=== PATIENT | female | born 1980 | race Caucasian/White ===

== ENCOUNTER → 2018-09-01 11:00 | Outpatient (CLI) | payer OTHER, SELFPAY ==
[2018-09-01 11:38] LABS: Add Manual Diff / Slide Review NO; Basophils Absolute Auto 0 /uL (0-100); Basophils Percent Auto 0.3 % (0-2); Eosinophils Absolute Auto 100 /uL (0-450); Eosinophils Percent Auto 1.2 % (2-4); Hematocrit 42.7 % (36-46); Hemoglobin 14.3 g/dL (12.0-16.0); Lymphocytes Absolute Auto 1900 /uL (1100-4500); Lymphocytes Percent Auto 26.3 % (25-40); Mean Corpuscular HGB Conc 33.6 % (30-36); Mean Corpuscular Hemoglobin 28.9 PG (26-34); Monocytes Absolute Auto 500 /uL (0-900); Monocytes Percent Auto 7.5 % (3-14); Neutrophils Absolute Auto 4700 /uL (1500-7000); Neutrophils Percent Auto 64.7 % (50-75); Platelet Count 422 X10^3/uL (150-400); Red Blood Cell Count 4.96 X10^6/uL (4.0-5.2); Red Cell Distribution Width 13.7 % (11.6-14.8); White Blood Cell Count 7.2 X10^3/uL (4.5-11.0)
[2018-09-01 11:54] LABS: Hemoglobin A1C% w Est Avg Glu 5.4 % (4.0-6.0)
[2018-09-01 12:03] LABS: Alanine Aminotransferase 48 IU/L (9-52); Albumin 4.6 g/dL (3.5-5.0); Albumin Globulin Ratio 1.2 (1.0-2.8); Alkaline Phosphatase 83 U/L (38-126); Aspartate Aminotransferase 34 IU/L (14-36); BUN Creatinine Ratio 18.6 (6-22); Bilirubin Total 0.6 mg/dL (0.2-1.3); Blood Urea Nitrogen 13 mg/dL (7-17); Calcium 9.9 mg/dL (8.4-10.2); Carbon Dioxide 28 mmol/L (22-32); Chloride 100 mmol/L (98-107); Cholesterol 244 mg/dL (140-199); Estimated Glomerular Filt Rate > 60.0 mL/min (>60); Globulin 3.8 g/dL (1.7-4.1); Glucose 92 mg/dL (70-100); HDL Cholesterol 47 mg/dL (40-60); HEMOLYSIS < 15 (0-50); LDL Cholesterol Calculated 174 mg/dL (<100); Potassium 4.3 mmol/L (3.4-5.1); Sodium 138 mmol/L (137-145); Total Protein 8.4 g/dL (6.3-8.2); Triglycerides 113 mg/dL (35-150)
[2018-09-01 12:19] LABS: Vitamin D 25 Hydroxy (D3) 20.2 ng/mL (30.0-100.0)
[2018-09-01 12:22] LABS: Free T3, Triiodothyronine Free 3.18 pg/mL (2.77-5.27)
[2018-09-01 12:36] LABS: Thyroid Stimulating Hormone 2.03 uIU/mL (0.47-4.68)
== END ==
PROVIDERS: PCP Student in an Organized Health Care Education/Training Program; Visit Provider Student in an Organized Health Care Education/Training Program
DX: E03.9 Hypothyroidism, unspecified (principal); E28.2 Polycystic ovarian syndrome; E55.9 Vitamin D deficiency, unspecified; E66.01 Morbid (severe) obesity due to excess calories
CPT/HCPCS: 36415; 80053; 80061; 82306; 83036; 84439; 84443; 84481; 85025

== ENCOUNTER → 2018-09-28 15:16 | Outpatient (CLI) | payer OTHER, SELFPAY ==
--- NOTE | 2018-09-28 16:30 | DIET.PN ---
Met for initial nutrition consultation. Pt wants help losing weight. Reports going on many diets - they often work and she will lose weight, but then plateaus and loses motivation. When stops following meal plan, regains wt and now is highest she has ever been. States she loses wt pretty quickly and sticks with her diet for a couple weeks once plateaued before abandoning. 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 always on the go, but once stops moving is tired. In evening snacks due to boredom and fatigue Exercise: on feet all day, but little exercise otherwise. Has done bouts of exercise when trying to lose wt. Liked doing tabata routines Dx: morbid obesity Ht 5'10 Wt 343# (at MD office) BMI 49 Lowest Adult wt 200# Assessment: This is a pt that appears to go gung ho when starting a diet/healthy eating plan; gets frustrated when wt doesn't keep coming off quickly, even though she admits to feeling better by eating healthier foods. Once not losing wt quickly reverts back to old habits. Needs to choose more moderate meal plan and exercise routine that she will be able to stick with and persevere. Emphasized that she should expect to spend about a year to lose 50#, so at least 1.5 years if she wants to reach goal of 200# Intervention: Provided education on healthy plate model for balanced diet; portion control and education on healthy rate of wt loss. Discussed using food record as tool for keeping up motivation and commitment. Strongly encouraged exercise, but to start slow. Plan: Use H.plate model for portioning meals REcord food intake and minutes of exercise Tabata or other every other day is first goal. F/u in 3-4 wks
== END ==
PROVIDERS: PCP Student in an Organized Health Care Education/Training Program; Visit Provider Student in an Organized Health Care Education/Training Program
DX: E66.01 Morbid (severe) obesity due to excess calories (principal); Z68.42 Body mass index [BMI] 45.0-49.9, adult
CPT/HCPCS: 97802

== ENCOUNTER → 2018-10-19 15:22 | Outpatient (CLI) | payer OTHER, SELFPAY ==
--- NOTE | 2018-10-19 16:06 | DIET.PN ---
Met for first f/u consultation. Trish has been recording food intake on phone [employer]. Has been planning ahead and preparing more foods from scratch; taking meals and snacks to work or preparing at work. 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 Hasn't been hungry, finding that eating less carbs - especially refined carbs, helps better control cravings. Has been walking about every other day; did not yet start tabatta, but may add that in in the next month. DX: PCOS, morbid obesity Ht: 70 Wt: 327.6# down 15.4# from previous visit Calorie goal per [employer]: [address] heidi intake: 1350 cals Assessment: Great start; lost 15# in 2 weeks. Cautioned against continuing to lose too quickly, but suspect initial wt loss include excess fluid. Is making many good lifestyle changes. Intervention: Provided education on safe rate of wt loss and reasons for losing slowing. Emphasized importance of perseverence; sticking to these lifestyle changes for the long haul. Plan: f/u monthly to provide support Trish wants to try to work in more vegs at breakfast meals Possibly add tabatta 1/week. Continue walking every other day.
== END ==
PROVIDERS: PCP Student in an Organized Health Care Education/Training Program; Visit Provider Student in an Organized Health Care Education/Training Program
DX: E66.01 Morbid (severe) obesity due to excess calories (principal); E28.2 Polycystic ovarian syndrome
CPT/HCPCS: 97803

== ENCOUNTER → 2020-10-25 08:50 | Outpatient (CLI) | payer OTHER, SELFPAY ==
[2020-10-25] MEDS: COVID-19 VACC #1, MRNA(MOD) 100 MCG/0.5 ML VIAL IM (09:05)
== END ==
PROVIDERS: PCP Student in an Organized Health Care Education/Training Program; Visit Provider Internal Medicine
DX: Z23 Encounter for immunization (principal)
CPT/HCPCS: 0011A; 91301

== ENCOUNTER → 2020-11-22 08:40 | Outpatient (CLI) | payer OTHER, SELFPAY ==
[2020-11-22] MEDS: COVID-19 VACC #2, MRNA(MOD) 100 MCG/0.5 ML VIAL IM (08:47)
== END ==
PROVIDERS: PCP Student in an Organized Health Care Education/Training Program; Visit Provider Internal Medicine
DX: Z23 Encounter for immunization (principal)
CPT/HCPCS: 0012A; 91301

== ENCOUNTER → 2021-12-13 15:37 | Outpatient (CLI) | payer OTHER, MEDICAID, SELFPAY ==
[2021-12-13 17:39] LABS: Alanine Aminotransferase 31 IU/L (<35); Albumin 4.2 g/dL (3.5-5.0); Albumin Globulin Ratio 1.3 (1.0-2.8); Alkaline Phosphatase 84 U/L (38-126); Aspartate Aminotransferase 30 IU/L (14-36); BUN Creatinine Ratio 14.8 (6-22); Bilirubin Total 0.4 mg/dL (0.2-1.3); Blood Urea Nitrogen 12 mg/dL (7-17); Calcium 8.6 mg/dL (8.4-10.2); Carbon Dioxide 29 mmol/L (22-32); Chloride 104 mmol/L (98-107); Cholesterol 193 mg/dL (140-199); Estimated Glomerular Filt Rate > 60 mL/min (>60); Globulin 3.3 g/dL (1.7-4.1); Glucose 114 mg/dL (70-100); HDL Cholesterol 36 mg/dL (40-60); HEMOLYSIS < 15 (0-50); LDL Cholesterol Calculated 127 mg/dL (<100); Potassium 3.7 mmol/L (3.4-5.1); Sodium 138 mmol/L (137-145); Total Protein 7.5 g/dL (6.3-8.2); Triglycerides 151 mg/dL (35-150)
[2021-12-13 17:47] LABS: Add Manual Diff / Slide Review NO; Basophils Absolute Auto 0 /uL (0-100); Basophils Percent Auto 0.4 % (0-2); Eosinophils Absolute Auto 100 /uL (0-450); Eosinophils Percent Auto 0.5 % (2-4); Hematocrit 37.1 % (36-46); Hemoglobin 12.6 g/dL (12.0-16.0); Lymphocytes Absolute Auto 2200 /uL (1100-4500); Lymphocytes Percent Auto 21.6 % (25-40); Mean Corpuscular HGB Conc 34.1 % (30-36); Mean Corpuscular Volume 85.2 fL (80-100); Monocytes Absolute Auto 500 /uL (0-900); Monocytes Percent Auto 4.6 % (3-14); Neutrophils Absolute Auto 7400 /uL (1500-7000); Neutrophils Percent Auto 72.9 % (50-75); Platelet Count 374 X10^3/uL (150-400); Red Blood Cell Count 4.35 X10^6/uL (4.0-5.2); Red Cell Distribution Width 13.7 % (11.6-14.8); White Blood Cell Count 10.2 X10^3/uL (4.5-11.0)
[2021-12-13 18:12] LABS: Vitamin D 25 Hydroxy (D3) 20.6 ng/mL (30.0-100.0)
[2021-12-13 18:24] LABS: Vitamin B12 985 pg/mL (239-931)
== END ==
PROVIDERS: PCP Student in an Organized Health Care Education/Training Program; Referring Provider Student in an Organized Health Care Education/Training Program; Visit Provider Student in an Organized Health Care Education/Training Program
DX: E03.9 Hypothyroidism, unspecified (principal); E28.2 Polycystic ovarian syndrome; E66.01 Morbid (severe) obesity due to excess calories; F41.8 Other specified anxiety disorders; E78.2 Mixed hyperlipidemia
CPT/HCPCS: 36415; 80053; 80061; 82306; 82607; 84443; 85025

== ENCOUNTER → 2022-01-17 15:30 | Outpatient (CLI) | payer OTHER, MEDICAID, SELFPAY ==
--- NOTE | 2022-01-17 15:31 | DI.MG.S_ITS ---
BILATERAL DIGITAL SCREENING MAMMOGRAM 3D/2D WITH CAD: 01/17/2022 CLINICAL: Baseline exam Routine screening. No prior exams were available for comparison. The tissue of both breasts is heterogeneously dense. This may lower the sensitivity of mammography. Current study was also evaluated with a Computer Aided Detection (CAD) system. No significant masses, calcifications, or other findings are seen in either breast. IMPRESSION: NEGATIVE There is no mammographic evidence of malignancy. A 1 year screening mammogram is recommended. Based on the Tyrer Cuzick model (a risk assessment model) the patient's lifetime risk is 9.8% and her 10 year risk is 1.4%. According to the ACR, ACS, and NCCN guidelines, an annual breast MRI exam along with mammogram is recommended if the patient's lifetime risk is 20% or greater. This exam was interpreted at Station ID: [id number]. NOTE: For mammograms, a report in lay terms will be sent to the patient. Approximately 15% of breast malignancies will not be visualized mammographically. In the management of a palpable breast mass, a negative mammogram must not discourage biopsy of a clinically suspicious lesion. Electronically Signed By: Bertrand Chilel M.D., jr/kayla:01/18/2022 09:46:22 letter sent: Normal Exam ACR BI-RADS Category 1: Negative 3341F
== END ==
PROVIDERS: PCP Student in an Organized Health Care Education/Training Program; Referring Provider Student in an Organized Health Care Education/Training Program; Visit Provider Student in an Organized Health Care Education/Training Program
DX: Z12.31 Encounter for screening mammogram for malignant neoplasm of breast (principal)
CPT/HCPCS: 77063; 77067

== ENCOUNTER → 2023-01-30 16:00 | Outpatient (CLI) | payer OTHER, SELFPAY ==
--- NOTE | 2023-01-30 16:01 | DI.MG.S_ITS ---
BILATERAL DIGITAL SCREENING MAMMOGRAM 3D/2D WITH CAD: 01/30/2023 CLINICAL: Routine screening. Comparison is made to exam dated: 01/17/2022 mammogram - [facility]. There are scattered areas of fibroglandular density in both breasts (category b / 25%-50% glandular tissue). Current study was also evaluated with a Computer Aided Detection (CAD) system. No significant masses, calcifications, or other findings are seen in either breast. There has been no significant interval change. IMPRESSION: NEGATIVE There is no mammographic evidence of malignancy. A 1 year screening mammogram is recommended. Based on the Tyrer Cuzick model (a risk assessment model) the patient's lifetime risk is 6.5% and her 10 year risk is 1.1%. According to the ACR, ACS, and NCCN guidelines, an annual breast MRI exam along with mammogram is recommended if the patient's lifetime risk is 20% or greater. This exam was interpreted at Station ID: [id number]. NOTE: For mammograms, a report in lay terms will be sent to the patient. Approximately 15% of breast malignancies will not be visualized mammographically. In the management of a palpable breast mass, a negative mammogram must not discourage biopsy of a clinically suspicious lesion. Electronically Signed By: Julio loyola/kayla:01/31/2023 10:16:34 letter sent: Normal Exam ACR BI-RADS Category 1: Negative 3341F
[2023-01-30 17:53] LABS: Follicle Stimulating Hormone 11.8 mIU/mL; Luteinizing Hormone 35.3 mIU/mL
[2023-01-30 18:07] LABS: TSH w/ Reflex to FT4 3.54 uIU/mL (0.47-4.68)
[2023-01-30 18:09] LABS: Testosterone 59.8 ng/dL (5.71-77.0)
[2023-02-01 03:23] LABS: Labcorp Hemoglobin (Hb) A1c 5.7 % (4.8-5.6)
== END ==
PROVIDERS: PCP Pediatrics; Referring Provider Pediatrics; Visit Provider Pediatrics
DX: Z12.31 Encounter for screening mammogram for malignant neoplasm of breast (principal); E03.9 Hypothyroidism, unspecified; E66.01 Morbid (severe) obesity due to excess calories; F41.8 Other specified anxiety disorders; N92.6 Irregular menstruation, unspecified; Z97.5 Presence of (intrauterine) contraceptive device
CPT/HCPCS: 36415; 77063; 77067; 82627; 83001; 83002; 83036; 84403; 84443

== ENCOUNTER → 2023-02-28 11:11 | Outpatient (CLI) | payer OTHER, SELFPAY ==
[2023-02-28 12:44] LABS: Free T3, Triiodothyronine Free 4.23 pg/mL (2.77-5.27); Free T4, Direct Thyroxine 1.04 ng/dL (0.78-2.19)
[2023-02-28 12:46] LABS: Vitamin D 25 Hydroxy (D3) 15.5 ng/mL (30.0-100.0)
[2023-02-28 13:05] LABS: Cholesterol 228 mg/dL (140-199); HDL Cholesterol 39 mg/dL (40-60); LDL Cholesterol Calculated 164 mg/dL (<100); Triglycerides 126 mg/dL (35-150)
[2023-03-01 07:54] LABS: Insulin Level Total 43.4 uIU/mL (2.6-24.9)
== END ==
PROVIDERS: PCP Pediatrics; Referring Provider Family Medicine; Visit Provider Family Medicine
DX: E03.9 Hypothyroidism, unspecified (principal); E28.2 Polycystic ovarian syndrome; E55.9 Vitamin D deficiency, unspecified; R73.03 Prediabetes; E78.5 Hyperlipidemia, unspecified
CPT/HCPCS: 36415; 80061; 82306; 83525; 84439; 84443; 84481

== ENCOUNTER → 2023-03-20 13:26 | Outpatient (CLI) | payer OTHER, SELFPAY ==
--- NOTE | 2023-03-20 13:27 | DI.RAD.S_ITS ---
PROCEDURE: XR KNEE RT 3V INDICATIONS: Knee pain TECHNIQUE: 3 views of the knee were acquired. COMPARISON: None. FINDINGS: Bones: Ossific density projecting over the medial tubercle of the tibial spine best seen on AP view, possible avulsion fracture. No suspicious bony lesions. Mild lateral patellar tilt. Mild tricompartmental osteoarthrosis. Soft tissues: Small joint effusion. No suspicious soft tissue calcifications. IMPRESSION: Ossific density adjacent to the medial tubercle of the tibial spine, possible avulsion fracture. Consider further evaluation with cross-sectional images such as CT or MRI. Dictated by: Pat Wright M.D. on 03/20/2023 at 18:06 Approved by: Pat Wright M.D. on 03/20/2023 at 18:17
== END ==
PROVIDERS: PCP Pediatrics; Referring Provider Nurse Practitioner Family; Visit Provider Nurse Practitioner Family
DX: M17.11 Unilateral primary osteoarthritis, right knee (principal); M25.561 Pain in right knee; M25.461 Effusion, right knee
CPT/HCPCS: 73562

== ENCOUNTER → 2024-03-05 08:21 | Outpatient (CLI) | payer OTHER, SELFPAY ==
[2024-03-05 09:21] LABS: Add Manual Diff / Slide Review NO; Basophils Absolute Auto 0 /uL (0-100); Basophils Percent Auto 0.5 % (0-2); Eosinophils Absolute Auto 100 /uL (0-450); Eosinophils Percent Auto 1.3 % (2-4); Hematocrit 40.5 % (36-46); Hemoglobin 13.6 g/dL (12.0-16.0); Lymphocytes Absolute Auto 1700 /uL (1100-4500); Lymphocytes Percent Auto 22.3 % (25-40); Mean Corpuscular HGB Conc 33.5 % (30-36); Mean Corpuscular Hemoglobin 29.3 PG (26-34); Mean Corpuscular Volume 87.3 fL (80-100); Monocytes Absolute Auto 600 /uL (0-900); Monocytes Percent Auto 7.4 % (3-14); Neutrophils Absolute Auto 5300 /uL (1500-7000); Neutrophils Percent Auto 68.5 % (50-75); Platelet Count 370 X10^3/uL (150-400); Red Blood Cell Count 4.64 X10^6/uL (4.0-5.2); Red Cell Distribution Width 13.9 % (11.6-14.8); White Blood Cell Count 7.8 X10^3/uL (4.5-11.0)
[2024-03-05 09:39] LABS: Alanine Aminotransferase 61 IU/L (<35); Albumin 4.2 g/dL (3.5-5.0); Albumin Globulin Ratio 1.4 (1.0-2.8); Alkaline Phosphatase 70 U/L (38-126); Aspartate Aminotransferase 38 IU/L (14-36); BUN Creatinine Ratio 16.7 (6-22); Bilirubin Total 0.9 mg/dL (0.2-1.3); Blood Urea Nitrogen 13 mg/dL (7-17); Calcium 9.5 mg/dL (8.4-10.2); Carbon Dioxide 26 mmol/L (22-32); Chloride 105 mmol/L (98-107); Cholesterol 137 mg/dL (140-199); Estimated Glomerular Filt Rate > 60 mL/min (>60); Globulin 2.9 g/dL (1.7-4.1); Glucose 87 mg/dL (70-100); HDL Cholesterol 44 mg/dL (40-60); HEMOLYSIS < 15 (0-50); LDL Cholesterol Calculated 78 mg/dL (<100); Potassium 4.6 mmol/L (3.4-5.1); Sodium 139 mmol/L (137-145); Total Protein 7.1 g/dL (6.3-8.2); Triglycerides 76 mg/dL (35-150)
[2024-03-05 10:07] LABS: Thyroid Stimulating Hormone 1.43 uIU/mL (0.47-4.68)
== END ==
PROVIDERS: PCP Family Medicine; Referring Provider Family Medicine; Visit Provider Family Medicine
DX: E66.01 Morbid (severe) obesity due to excess calories (principal); E03.9 Hypothyroidism, unspecified; R73.03 Prediabetes; E78.5 Hyperlipidemia, unspecified
CPT/HCPCS: 36415; 80053; 80061; 84443; 85025